=== PATIENT | female | born 1960 | race Caucasian/White ===

== ENCOUNTER 2019-01-26 10:37 | Inpatient (IN) ==
--- NOTE | 2019-01-25 19:33 | Discharge Summary ---
Date of Encounter: 01/30/19 Time of Encounter: 12:30 - Discharge Diagnosis (1) Osteoarthritis of knees, bilateral Priority: Primary Status: Chronic Qualifiers: Osteoarthritis type: unspecified Qualified Code(s): M17.0 - Bilateral primary osteoarthritis of knee (2) Status post total bilateral knee replacement Priority: Primary Status: Acute (3) Diabetes mellitus Priority: Secondary Status: Chronic Qualifiers: Diabetes mellitus type: type 2 Diabetes mellitus manager intermediate insulin use: without manager intermediate use Diabetes mellitus complication status: with unspecified complications Qualified Code(s): E11.8 - Type 2 diabetes mellitus with unspecified complications (4) HLD (hyperlipidemia) Priority: Secondary Status: Chronic Qualifiers: Hyperlipidemia type: unspecified Qualified Code(s): E78.5 - Hyperlipidemia, unspecified (5) Tachycardia Priority: Secondary Status: Acute - Hospital Course Hospital course: Ms. Caballero is a 58 year old female Date of procedure: 01/26/19 Pre-op diagnosis: Bilateral knee arthritis Post-op diagnosis: same Procedure: Bilateral robotic-assisted Total knee replacement Patient developed orthostatic hypotensionw which improved with medication and fluid management. Patient received 1 unit PRBCs on 01/30 for acute anemia. Patient developed recurrent sinus tachycardia which responded to beta michelle use. This was added to patient's medication regimen as temporary medication during the postoperative period until tachycardia resolves. Patient discharged to in rehab with outpatient follow up with ortho arranged. - Time Spent with Patient Total time spent providing and/or coordinating discharge services: - Discharge Medications Prescriptions: New OxyCODONE Immed Rel [Roxicodone 5 MG] 5 mg PO Q6HR PRN 7 Days #28 tablet PRN Reason: Severe Pain Aspirin Enteric Coated [Aspirin EC] 325 mg PO BID 10 Days #20 tablet. Cyclobenzaprine [Flexeril] 5 mg PO TID PRN tablet PRN Reason: Spasms Docusate [Colace] 100 mg PO BID capsule Ferrous Sulfate 325 mg PO BIDWM tablet Lidocaine Patch [Lidoderm 5% patch] 2 each TP DAILY adh..patch Metoprolol [Lopressor] 12.5 mg PO BID 7 Days #14 tablet Ascorbic Acid [Vitamin C] 500 mg PO BIDWM tablet Continue Sitagliptin Phos/Metformin HCl [Janumet 50-500 mg Tablet] 1 each PO DAILY Lisinopril 2.5 mg PO DAILY Cholecalciferol (D-3) [Vitamin D] 1,000 unit PO DAILY Atorvastatin [Lipitor] 10 mg PO HS Insulin Degludec [Tresiba Flextouch U-200] 10 unit SQ HS Home Medications: Cholecalciferol (D-3) [Vitamin D] 1,000 unit PO DAILY 04/18/16 [History] Lisinopril 2.5 mg PO DAILY 04/18/16 [History] Sitagliptin Phos/Metformin HCl [Janumet 50-500 mg Tablet] 1 each PO DAILY 04/18/16 [History] Atorvastatin [Lipitor] 10 mg PO HS 07/05/17 [History] Insulin Degludec [Tresiba Flextouch U-200] 10 unit SQ HS 07/05/17 [History] Aspirin Enteric Coated [Aspirin EC] 325 mg PO BID 10 Days #20 tablet. 01/25/19 [Rx] OxyCODONE Immed Rel [Roxicodone 5 MG] 5 mg PO Q6HR PRN 7 Days #28 tablet 01/25/19 [Rx] Ascorbic Acid [Vitamin C] 500 mg PO BIDWM tablet 01/31/19 [Rx] Cyclobenzaprine [Flexeril] 5 mg PO TID PRN tablet 01/31/19 [Rx] Docusate [Colace] 100 mg PO BID capsule 01/31/19 [Rx] Ferrous Sulfate 325 mg PO BIDWM tablet 01/31/19 [Rx] Lidocaine Patch [Lidoderm 5% patch] 2 each TP DAILY adh..patch 01/31/19 [Rx] Metoprolol [Lopressor] 12.5 mg PO BID 7 Days #14 tablet 01/31/19 [Rx] Allergies/Adverse Reactions: Allergy/AdvReac Type Severity Reaction Status Date / Time latex Allergy See Verified 01/15/19 09:23 Comments naproxen AdvReac Anaphylaxis Verified 01/26/19 11:19 HIVES Date of admission: 01/26/19 Primary care physician: Trinity Mckeon Discharging clinician: Derian Mathew Anticipated date of discharge: 01/30/19 - VTE Documentation of Mechanical Device: Venous foot pump, device - Patient Status Disposition: Transfer Inpatient Rehab Fac Condition: Good Functional capacity at discharge: uses cane/walker Overall status at discharge: patient is progressing back to baseline - Discharge Instructions Follow Up With: Trinity Mckeon DO [Primary Care Provider] - - Diet and Activity Activity: as per physical therapy Diet: advance to your usual diet
--- NOTE | 2019-01-26 09:49 | Anesthesia Evaluation PreOp ---
Date of Encounter: 01/26/19 Time of Encounter: 09:47 - Past History Planned Operation: Marcos Robotic Total knee arthroplasty Cardiac History: HTN, Hyperlipidemia Pulmonary History: Denies Any Significant HX SOFTBALL WINDER History: Denies Any Significant HX Other Medical History: Diabetes Type II Anesthesia History: No Prior Anesthetic Complications, Past Anesthesia (marcos shoulder scope, T&A, laparoscopy,) Alcohol Use: none Drug use: none Medications and Allergies Cholecalciferol (D-3) [Vitamin D] 1,000 unit PO DAILY 04/18/16 [History] Lisinopril 2.5 mg PO DAILY 04/18/16 [History] Sitagliptin Phos/Metformin HCl [Janumet 50-500 mg Tablet] 1 each PO DAILY 04/18/16 [History] Atorvastatin [Lipitor] 10 mg PO HS 07/05/17 [History] Insulin Degludec [Tresiba Flextouch U-200] 10 unit SQ HS 07/05/17 [History] Aspirin Enteric Coated [Aspirin EC] 325 mg PO BID 10 Days #20 tablet. 01/25/19 [Rx] Docusate Sodium [Colace] 100 mg PO BID 5 Days #10 capsule 01/25/19 [Rx] OxyCODONE Immed Rel [Roxicodone 5 MG] 5 mg PO Q6HR PRN 7 Days #28 tablet 01/25/19 [Rx] Allergy/AdvReac Type Severity Reaction Status Date / Time latex Allergy See Verified 01/15/19 09:23 Comments naproxen AdvReac Anaphylaxis Verified 01/26/19 11:19 HIVES - Meds/Allergy Pre-op Review Medications Reviewed: Yes Allergies Reviewed: Yes Beta Blockers on Current Med List: No Anesthesia Results - Labs Laboratory Tests 11/27/17 01/15/19 01/15/19 10:35 09:30 09:30 WBC 8.5 Hgb 14.2 Hct 44.1 Plt Count 282 PT 11.3 INR 1.0 APTT 30.2 Sodium Potassium Chloride Carbon Dioxide BUN Creatinine Glucose 140 H Est Mean Plasma Glucose 01/15/19 01/15/19 09:30 09:30 WBC Hgb Hct Plt Count PT INR APTT Sodium 136 Potassium 4.3 Chloride 106 Carbon Dioxide 29 BUN 16 Creatinine 0.52 L Glucose Est Mean Plasma Glucose 137 - Imaging EKG: report reviewed (SINUS RHYTHM LOW QRS VOLTAGE IN PRECORDIAL LEADS [QRS DEFLECTION < 1.0 mV IN CHEST LEADS] Electronically Signed On 01-15-2019 13:41:46 EST by Inocencio Cuello) Anesthesia Exam O2 Sat Height 1.63 m Height 1.63 m Weight 73.482 kg Weight 73.482 kg O2 Sat by Pulse Oximetry 98 Vital Signs Temp Pulse Resp BP Pulse Ox 98.8 F 81 18 106/60 98 01/26/19 11:13 01/26/19 11:13 01/26/19 11:13 01/26/19 11:13 01/26/19 11:13 Weight: 73kg NPO (# of Hours): >8 - HEENT Pupil (Motor): Pupils equal, EOMI Mallampati: II Teeth: Normal Oral Opening: Greater than 3 - SOFTBALL WINDER LOC: Oriented SOFTBALL WINDER Motor: Normal RUE, Normal LUE, Normal RLE, Normal LLE, Normal Face SOFTBALL WINDER Sensory: Normal: RUE, LUE, RLE, LLE, Face - Cardiac Rhythm: Regular - Pulmonary Breath Sounds: bilateral Clear Respiratory Effort: Symmetrical Anesthesia Assess/Plan ASA Score: 2 Level of consciousness: Cooperative, Oriented Anesthetic Plan: General (plan b), Regional Nerve Block (marcos adductor), MAC, Spinal Regional Nerve Block Plan: Adductor canal (marcos) Monitoring Plan: Standard Monitors Recovery Plan: PACU
[~2019-01-26 10:37] MED LIST: Acetaminophen IV 1,000 MG/100 ML INFUS..BTL IVPB ONE; Pregabalin 75 MG CAPSULE PO ONE; Total Joint Mixture (50 ml) IR ONE
[2019-01-26] MEDS ORDERED: CeFAZolin Syr 2,000MG/20 ML 2,000 MG/20 ML SYRINGE IVPB ONE (10:52)
[2019-01-26] MEDS ORDERED: Ringers Solution, Lactated 1,000 ML IVC SCH ×3 (11:00→16:28)
[2019-01-26] MEDS ORDERED: *HR* Midazolam HCl 2 MG/2 ML VIAL ONE (11:09)
[2019-01-26] MEDS ORDERED: Ondansetron 4 MG/2 ML VIAL ONE (11:09)
[2019-01-26] MEDS ORDERED: Lidocaine -MPF 2% 2 ML VIAL ONE (11:09)
[2019-01-26] MEDS ORDERED: Propofol 500 MG/50 ML INFUS..BTL ONE (11:09)
[2019-01-26] MEDS ORDERED: Dexamethasone 4 MG/ML VIAL ONE (11:09)
[2019-01-26] MEDS ORDERED: *HR* FentaNYL (PF) 100 MCG/2 ML VIAL ONE (11:09)
[2019-01-26] MEDS ORDERED: *HR* OxyCODONE Immed Rel 5 MG TABLET PO PRN (11:31)
[2019-01-26] MEDS ORDERED: *HR* Meperidine 25 MG/ML SYRINGE IVP PRN (11:31)
[2019-01-26] MEDS ORDERED: *HR* HYDROmorphone (PF) 1 MG/ML SYRINGE IVP PRN (11:31)
[2019-01-26] MEDS ORDERED: Ondansetron 4 MG/2 ML VIAL IVP ONE (11:31)
[2019-01-26] MEDS ORDERED: *HR* Promethazine 25 MG/ML VIAL IVP PRN ×2 (11:31→16:28)
--- NOTE | 2019-01-26 11:40 | History & Physical Report ---
Date of Encounter: 01/26/19 Time of Encounter: 11:40 24 Hour HP Update - Instructions Instructions: If the History and Physical is less than 30 days old and was completed prior to A.M. admission and or procedure and has NOT been updated on calendar day of procedure please complete this update prior to performing procedure. - Update Patient reports changes in Medical Condition: No Changes in examination, assessment, or condition: No Changes in Medication: No Preop tests/diagnostics Reviewed: Yes Surgery Remains Indicated: Yes Consent for Planned Operative Procedure(s) Verified: Yes - Pre-Operative Checklist Preoperative Checklist Indicated: No Prophylactic Antibiotic Ordered: Yes Is VTE Prophylaxis Indicated?: Yes
[2019-01-26] MEDS ORDERED: ROPIVACAINE/PF/NS SYRINGE INTRAART ONE (12:01)
[2019-01-26] MEDS ORDERED: Lidocaine -MPF 1% 5 ML AMPUL ONE ×2 (12:01→12:23)
[2019-01-26] MEDS ORDERED: Ethanol\\Acetic Acid\\Na Ace\\Ben 1,000 ML IRRIG.SOLN IR ONE (12:17)
--- NOTE | 2019-01-26 12:46 | Anesthesia Procedures ---
Date of Encounter: 01/26/19 Time of Encounter: 12:44 Procedures: Anesthesia - Nerve Block Procedure Date: 01/26/19 Time: 12:44 Allergies/Adv Reactions: latex Allergy (Verified 01/15/19 09:23) See Comments naproxen Adverse Reaction (Verified 01/26/19 11:19) Anaphylaxis HIVES Pre-op Diagnosis: osteoarthritis Surgical Procedure: bilateral total knee replacment Checklist: Correct Patient Identifier, Correct procedure, History checked Correct side: Left Blood Thinner: No Monitor Applied: BP, Pulse Oximetry Supplemental Oxygen via Nasal Cannula (L/min): 2 Sedation: Versed (mg): 2 Sedation: Fentanyl (mcg): 100 Indication: Post Op Analgesia Pre-op Neuro Deficits: No Block Type: Other (adductor) Catheter placed: No Sterile Technique: Yes Ultrasound used: Yes Anatomy identified: Yes Visual spread of Local: Yes Neuro Stimulation: No Blood on Needle Aspiration: No Smooth Injection of Local: Yes Pain with Injection of Local: No Prep: Chlorhexadine Needle: 22 x 50 mm Stimuplex Local: Ropivacaine (0.25%, 15cc each side) Volume (cc): 30 Number of Attempts: 1 Complications: None/effective block
--- NOTE | 2019-01-26 12:50 | Anesthesia Procedures ---
Date of Encounter: 01/26/19 Time of Encounter: 12:47 Procedures: Anesthesia - Epidural/Spinal Patient ID/Chart reviewed: Yes Patient examined: Yes Consent Obtained: Yes Supplemental Oxygen: Nasal Cannula (2l) Site Prep: Aseptic Technique Patient position: upright Local Anesthetic: Lidocaine 1% Amount of Local Anesthetic used: 3 Spinal Needle Gauge: 25 ([employer] Procedure: Strict asepsis, one failed attempt at L4-5, one successful attempt at L3-4. Clear CSF, no parasthesias, no heme, positive swirl, 2.5cc 0.5% bupivicaine injected incrementally.
[2019-01-26] MEDS ORDERED: Tranexamic Acid 1,000 MG/10 ML VIAL ONE (12:57)
[2019-01-26] MEDS ORDERED: Total Joint Mixture (50 ml) IR ONE ×2 (13:00)
[2019-01-26] MEDS ORDERED: *HR* PHENYLEPHRINE 1,000 MCG/10 ML SYRINGE IVP ONE (13:16)
--- NOTE | 2019-01-26 14:18 | Orthopedic Operative Note ---
Date of procedure: 01/26/19 Pre-op diagnosis: Bilateral knee arthritis Post-op diagnosis: same Procedure: Procedure: Bilateral robotic-assisted Total knee replacement Estimated blood loss: 300 cc Hardware: Metal and polyethylene replacement press-fit. [place] Femur: 4 Tibia: 4 PS insert: 11 left, 9 right Patella: 36 Exam Under anesthesia: Left knee 6 degree flexion contracture 7 degree varus right knee 12 degree flexion contracture 12 degree varus as calculated by the robot full flexion and no instability Procedural Notes: Patient with multiple loose bodies large and right suprapatellar pouch, both knees grade 4 arthritic changes medial compartment and patellofemoral joint. Operative procedure: The patient was brought to the operating room and placed on the operating room table. After general anesthesia was administered the operative knee was examin ed. Findings were noted in the exam under anesthesia. The operative extremity was prepped and draped in sterile surgical fashion. The patient received IV antibiotics prior to skin incision. The surgery that is dictated this for both knees differences will be highlighted surgery began with the left knee followed by the right knee. A standard midline incision was made centered over the patella. The incision was made through the skin and subcutaneous tissue. A medial parapatellar tendon approach was performed. Care was taken to preserve tissue along the medial aspect of the patella. And to protect the patella tendon. The deep MCL was released off the medial tibia. The infra patella fat pad was excised. The patella was everted and cut was made at the level of the insertion of the quadriceps and patella tendon. The patella was sized the guide was seated and the lug holes are drilled. Knee was brought into flexion. Patient noted to have grade 4 arthritic changes both knees medial compartment and patellofemoral joint. Steinmann pins were placed in the tibia and the femur for the tibial and femoral arrays respectively. Checkpoints were also placed in the tibia and the femur for calculation purposes. The knee including the femur and the tibial registered. Osteophytes, ACL and PCL were excised at this point. Extension and flexion were assessed with a valgus stress components were adjusted on the computer to balance the knee. Femoral cuts were made first with robotic assistance, these included the anterior cut posterior cuts chamfer cuts. Tibial cut was then performed with robotic assistance as well. Bone fragments were removed, as well as the medial and lateral meniscus. The size 4 femoral guide was seated box cut was made lug holes are drilled. The size 4 tibial tray was seated and prepared with the fin cutter. Trial reduction with the 11 left, 9 right PS Lisa revealed extension of 0 degree and 4 degree varus left knee, 9 degree varus right knee full flexion. No varus valgus instability. Trial reduction revealed excellent patella tracking. All trial components were removed all bony surfaces were irrigated. The Tibia was seated followed by the femur, The selected Lisa size was seated and secured patella. Patient had similar findings for motion and stability. The knee was closed by the PA. The knee was then irrigated out with 2 L of pulse irrigation. The extensor mechanism was closed with #2 FiberWire suture and #2 PDS suture. The subcutaneous tissue was then irrigated and closed deep with #1 PDS suture superficially with 0 PDS suture and skin was closed with zip tie The patient was then placed in a sterile dressing and a postoperative brace extubated and transferred to recovery room in stable condition. Anesthesia: spinal Surgeon: Derian Mathwe Was there an interior design assistant present: Yes Hat Sizer: Kimberlyn Chowdhury Estimated blood loss (cc): 300 Condition: stable Disposition: PACU
[2019-01-26 15:26] LABS: Hematocrit 38.3 % (35.3-44.9); Hemoglobin 12.4 g/dL (11.5-15.4)
--- NOTE | 2019-01-26 16:17 | Anesthesia Evaluation Post Op ---
Date of Encounter: 01/26/19 Time of Encounter: 16:20 - Vital Signs Vital Signs: Vital Signs/O2 Sat/Glucose, Most Current Temp Pulse Resp BP Pulse Ox 01/26/19 15:50 98.8 F 62 16 107/66 100 01/26/19 15:40 67 16 117/69 99 01/26/19 15:30 67 16 110/63 99 01/26/19 15:20 98.0 F 65 16 111/62 100 01/26/19 15:10 66 16 106/55 96 01/26/19 15:00 67 16 106/60 96 01/26/19 14:50 97.4 F L 68 16 98/63 99 01/26/19 12:40 78 113/62 99 - Lungs Lungs: Clear Ascult./Percussion - Airway Airway: Non-obstructed - Cardiovascular Regular Rate - Mental Status Mental Status: Alert & Oriented, Answers Appropriately - Pain Pain Scale: 0 - Nausea Vomiting Nausea Vomiting: Not Present - Hydration Hydration: Ice chips - Discharge PostOp Status: Transfer Patient to floor
[2019-01-26] MEDS ORDERED: Dextrose Gel 15 GM/37.5 ML TUBE PO PRN ×2 (16:28)
[2019-01-26] MEDS ORDERED: *HR* Dextrose 50 % in Water (Syg) 50 ML SYRINGE IVP PRN (16:28)
[2019-01-26] MEDS ORDERED: Dextrose 4 GM Chewable Tablets PO PRN ×2 (16:28)
[2019-01-26] MEDS ORDERED: MOM Conc 10 ML UD.LIQ PO PRN (16:28)
[2019-01-26] MEDS ORDERED: *HR* OxyCODONE/APAP 5/325 TABLET PO PRN (16:28)
[2019-01-26] MEDS ORDERED: Sennosides 8.6 MG TABLET PO PRN (16:28)
[2019-01-26] MEDS ORDERED: Ondansetron 4 MG/2 ML VIAL IVP PRN (16:28)
[2019-01-26] MEDS ORDERED: Temazepam 15 MG CAPSULE PO PRN (16:28)
[2019-01-26] MEDS ORDERED: D5% in Water 1,000 ML IVC PRN (16:28)
[2019-01-26] MEDS: Insulin LISPRO 300 UNITS/3 ML VIAL SQ SCH ×2 (17:34→20:57)
[2019-01-26] MEDS: Ascorbic Acid 500 MG TABLET PO SCH (18:57)
[2019-01-26] MEDS: traMADol 50 MG TABLET PO PRN (18:57)
[2019-01-26] MEDS: *HR* Enoxaparin 30 MG/0.3 ML SYRINGE SQ SCH (19:02)
[2019-01-26] MEDS: *HR* OxyCODONE Immed Rel 5 MG TABLET PO PRN (20:45)
[2019-01-26] MEDS: INSULIN DEGLUDEC 10 UNIT SQ SCH (20:57)
[2019-01-27] MEDS: *HR* OxyCODONE Immed Rel 5 MG TABLET PO PRN ×4 (01:37→19:37)
[2019-01-27] MEDS: *HR* Enoxaparin 30 MG/0.3 ML SYRINGE SQ SCH ×2 (05:54→17:20)
[2019-01-27] MEDS: traMADol 50 MG TABLET PO PRN ×2 (05:59→12:36)
--- NOTE | 2019-01-27 06:24 | Orthopedics Progress Note ---
Date of Encounter: 01/27/19 Time of Encounter: 06:23 Subjective Interval history: Patient was seen this morning doing well without complaints. Afebrile vital signs stable. Operative extremity: Neurovascularly intact Dressing clean dry and intact Calves nontender Assessment and plan: Continue with postoperative care Postop hematocrit 38 plan for discharge today Objective Vital signs: Vital Signs Temp Pulse Resp BP Pulse Ox 01/27/19 03:01 98.3 F 69 14 100/59 99 01/26/19 23:14 98.1 F 74 16 113/63 98 01/26/19 20:58 99 01/26/19 19:16 97.8 F 74 18 129/62 99 01/26/19 16:46 98 F 69 16 109/71 99 01/26/19 15:50 98.8 F 62 16 107/66 100 01/26/19 15:40 67 16 117/69 99 01/26/19 15:30 67 16 110/63 99 01/26/19 15:20 98.0 F 65 16 111/62 100 01/26/19 15:10 66 16 106/55 96 01/26/19 15:00 67 16 106/60 96 01/26/19 14:50 97.4 F L 68 16 98/63 99 01/26/19 12:40 78 113/62 99 01/26/19 11:53 80 16 106/64 99 01/26/19 11:15 132/66 01/26/19 11:13 98.8 F 81 18 106/60 98 01/26/19 10:46 106/64 Intake and Output 01/26/19 01/26/19 01/27/19 15:59 23:59 07:59 Intake Total 900 / 900 600 / 600 Output Total 300 / 300 1350 / 1350 0 / 0 Balance -300 / -300 -450 / -450 600 / 600 Intake: IV Fluids 100 / 100 Ancef 2,000 MG In 0.9 % Sodium 100 / 100 Chloride 100 ML @ 200 mls/hr IVPB Q[facility]H [facility] Rx#:[id number] Oral 800 / 800 600 / 600 Output: Urine 0 / 0 1350 / 1350 0 / 0 Estimated Blood Loss 300 / 300 Other: Weight 73.482 kg 77.04 kg Blood Glucose* 99 136 Patient Weight 01/27/19 23:59 Weight 77.04 kg - Labs CBC & BMP: 01/26/19 15:00 Labs: Abnormal lab results POC Glucose 136 mg/dL (70-99) H 01/26/19 23:03 Consult Discharge Plan - Plan Referrals: Trinity Mckeon DO [Primary Care Provider] - Prescriptions: Aspirin Enteric Coated [Aspirin EC] 325 mg PO BID 10 Days #20 tablet. Docusate Sodium [Colace] 100 mg PO BID 5 Days #10 capsule OxyCODONE Immed Rel [Roxicodone 5 MG] 5 mg PO Q6HR PRN 7 Days #28 tablet PRN Reason: Severe Pain
[2019-01-27 06:32] LABS: Hematocrit 35.2 % (35.3-44.9); Hemoglobin 11.5 g/dL (11.5-15.4)
[2019-01-27 06:48] LABS: BUN/Creatinine Ratio 23 (6-26); Blood Urea Nitrogen 13 mg/dL (6-20); Carbon Dioxide 28 mEq/L (23-29); Chloride 101 mEq/L (98-107); Glucose 124 mg/dL (70-105); Osmolality,Calculated 286 (280-300); Sodium 137 mEq/L (136-145); eGFR For Non-African Americans > 60 (> 60)
[2019-01-27] MEDS: Insulin LISPRO 300 UNITS/3 ML VIAL SQ SCH ×4 (08:23→20:30)
[2019-01-27] MEDS ORDERED: SITAGLIPTIN PHOS PO SCH (09:00)
[2019-01-27] MEDS ORDERED: METFORMIN HCL PO SCH (09:00)
[2019-01-27] MEDS ORDERED: [UNRECOGNIZED DRUG - OTHER] PO SCH (09:00)
[2019-01-27] MEDS: Multivit/Ca/Min/Fe/FA 1 TAB TABLET PO SCH (09:18)
[2019-01-27] MEDS: Ascorbic Acid 500 MG TABLET PO SCH ×2 (09:18→17:20)
[2019-01-27] MEDS: Cholecalciferol (D-3) 1,000 UNIT TABLET PO SCH (09:19)
[2019-01-27] MEDS: *HR* SitaGLIPtin 25 MG TABLET PO SCH (12:36)
[2019-01-27] MEDS: *HR* Metformin 500 MG TABLET PO SCH (12:37)
[2019-01-27] MEDS: Acetaminophen IV 1,000 MG/100 ML INFUS..BTL IVPB PRN (15:19)
--- NOTE | 2019-01-27 16:29 | Event Note ---
Date of Encounter: 01/27/19 Time of Encounter: 12:15 PCR - POD#1 s/p B/L TKR 01/26/19 Patient seen at bedside A&O x 3 Afebrile, vital signs stable now. She did have orthostatic hypotensive episode this morning which seems to have resolved now. She was given bolus of fluids at the time. She was having lightheadedness and nausea related to this episode but did not pass out. Dressings have minimal drainage. no calf tenderness to palpation. good dorsiflexion of foot, sensation intact distally. Labs reviewed. H/H - 11.5/35.2 stable, asymptomatic. Cr 0.57 - improved compared to preop Pain control: inadequate LEFT worse than right. described muscle spasms and sharp pain directly behind knee. minimal pain to right leg. will add muscle relaxer and lidoderm patch. If still no improvement will consider doppler although there is no calf pain on exam bilaterally. PT on hold this morning due to hypotension. If improved will try therapy this afternoon All questions and concerns addressed. Educated on use of incentive spirometer. Encouraged ambulation and proper hydration. Patient educated on post-operative restrictions and post-operative care. Assessment and plan: Continue with postoperative care Discharge plan: Home with outpatient therapy, will stay tonight for pain control, possible DC tomorrow
[2019-01-27] MEDS: Gabapentin 300 MG CAPSULE PO PRN (17:20)
[2019-01-27] MEDS: INSULIN DEGLUDEC 10 UNIT SQ SCH (20:31)
[2019-01-28] MEDS ORDERED: Isovue-370 500 ML BOTTLE IVP ONE (00:24)
[2019-01-28 01:06] LABS: Hematocrit 31.7 % (35.3-44.9); Hemoglobin 10.4 g/dL (11.5-15.4)
--- NOTE | 2019-01-28 01:15 | Internal Medicine Consult Note ---
Date of Encounter: 01/28/19 Time of Encounter: 00:10 - Assessment and Plan (1) Pleuritic chest pain Current Visit: Yes Status: Acute Assessment and plan: 1. High index of suspicion for PE given bilateral TKR. 2. STAT CTA chest ordered -- will order heparin drip if + for PE. 3. Will also cycle troponins, EKG's, and order ECHO. (2) Tachycardia Current Visit: Yes Status: Acute Assessment and plan: 1. Likely due to pleuritic CP/possible PE. 2. Monitor on telemetry. 3. Work-up and treatment as above. - Time Spent With Patient Total time spent is greater than 50% in coordination of care (as documented) at patient's floor/unit and/or counseling patient: Internal Medicine - CN: HPI - Data of Consult Consult date: 01/28/19 Requesting Physician: Derian Mathew MD - Consult Narrative Reason for consult: chest pain, tachycardia History of present illness: Ms. Caballero is a 58 year old female who is 2 days postop from bilateral knee re placement. I was asked to see patient by nursing staff and Dr. Mathew on an emergent basis for acute onset of chest pain and tachycardia. Upon my assessment of the patient, she is resting in bed comfortably. However, she is tachycardic with heart rate in the 120s to 130s. EKG shows sinus tachycardia. She complains of pleuritic-type chest pain, especially with position and deep inspiration. She has had no fevers, cough, congestion, or dyspnea otherwise. Patient has been on adequate DVT prophylaxis. Upon further history, patient states her mother has had prior DVT and questionable PE. She herself has not had any prior thromboembolism. Despite being on appropriate DVT prophylaxis, I still have a heightened suspicion for PE. I therefore ordered a STAT CT angiogram of the chest. I called Dr. Mathew and informed of my concern. If her CTA is positive for PE, we will initiate heparin infusion. He agrees with my plan of care. Of note, patient did have Doppler study of her left lower extremity today which was negative for DVT. Right lower extremity Dopplers were not performed. Past Med Surg Social Fam HX - Past Medical History Attestation: Yes The following information was validated with the patient. Source: patient, old records reviewed Medical history: diabetes Additional medical history: acromioclavicular joint arthritis. rotator cuff tear. Latex allergy status hives Psychiatric history: no psych history - Past Surgical History Surgical History: orthopedic, other Additional surgical history: bilateral shoulder repair. laparoscopy. tonsils and adenoids - Social History Smoking Status: Former smoker Smokeless Tobacco Status: No Alcohol use: none Drug use: none Current living situation: Home Activity Level: Independent ambulation - Family History Mother Living Status: Hx Family Neurologic Disorders: Yes (TIA) - Constitutional Constitutional: no chills, no fever(s) - EENT Eyes: no change in vision Ears: no ear pain Nose, mouth and throat: no nasal congestion, no sinus pressure, no sore throat - Cardiovascular Cardiovascular ROS IM: chest pain, palpitations, no dyspnea, no lightheadedness - Respiratory Respiratory: no cough, no chest congestion, no excessive phlegm production, no change in phlegm color, no pain with cough - Gastrointestinal Gastrointestinal: no diarrhea, no vomiting - Musculoskeletal Musculoskeletal ROS IM: no muscle cramps, no myalgias - Neurological Neurological ROS: no dizziness, no focal weakness, no frequent falls, no h eadache(s) - Endocrine Endocrine IM: no polyphagia, no polyuria - Allergic/Immunologic Allergic/Immunologic: no wheezing, no GI upset with certain foods Internal Medicine - CN: Meds Cholecalciferol (D-3) [Vitamin D] 1,000 unit PO DAILY 04/18/16 [History] Lisinopril 2.5 mg PO DAILY 04/18/16 [History] Sitagliptin Phos/Metformin HCl [Janumet 50-500 mg Tablet] 1 each PO DAILY 04/18 [History] Atorvastatin [Lipitor] 10 mg PO HS 07/05/17 [History] Insulin Degludec [Tresiba Flextouch U-200] 10 unit SQ HS 07/05/17 [History] Aspirin Enteric Coated [Aspirin EC] 325 mg PO BID 10 Days #20 tablet. 01/25/19 [Rx] Docusate Sodium [Colace] 100 mg PO BID 5 Days #10 capsule 01/25/19 [Rx] OxyCODONE Immed Rel [Roxicodone 5 MG] 5 mg PO Q6HR PRN 7 Days #28 tablet 01/25/19 [Rx] Allergy/AdvReac Type Severity Reaction Status Date / Time latex Allergy See Verified 01/15/19 09:23 Comments naproxen AdvReac Anaphylaxis Verified 01/26/19 11:19 [facility]EN[facility] Hospitalist - CN: Exam - Constitutional Vitals: Temp Pulse Resp BP Pulse Ox 98.6 F 123 17 113/57 98 01/27/19 23:22 01/27/19 23:22 01/27/19 23:22 01/27/19 23:22 01/27/19 23:22 General appearance IM: Present: cooperative, mild distress, A&O X 3, pleasant, answers questions appropriately Exam: see below - Head Head exam: Present: atraumatic, normal inspection - Eye Eye exam: Present: EOMI, PERRL. Absent: scleral icterus - ENT ENT exam: Present: mucous membranes dry, normal exam, normal oropharynx - Neck Neck exam general surgery: Present: full ROM, supple, trachea midline. Absent: tenderness, nuchal rigidity, thyromegaly - Respiratory Respiratory exam: Present: CTAB, tachypnea. Absent: accessory muscle use, chest wall tenderness, rales, rhonchi, wheezes Additional comments: + splinting at times with deep inspiration - Cardiovascular Cardiovascular exam IM: Present: +S1, +S2, tachycardia. Absent: diastolic murmur, systolic murmur - GI/Abdominal GI/Abdominal exam IM: Present: normal bowel sounds, soft. Absent: hepatomegaly, mass, splenomegaly, tenderness - Extremities Exam Extremities exam IM: Present: warm, radial pulses palpable and symmetrical. Absent: pedal edema - Back Exam Back exam: Absent: CVA tenderness (L), CVA tenderness (R) - Neurological Exam Neurological exam: Present: alert, CN II-XII intact, oriented X3, no focal deficits - Psychiatric Psychiatric exam: Present: normal affect, normal mood - Skin Skin exam IM: Present: dry, intact, warm Internal Medicine - CN: Reslt - Labs CBC & Chem 7: 01/28/19 00:42 01/27/19 06:15 Labs: Short CBC 01/27/19 01/28/19 Range/Units 06:15 00:42 Hgb 11.5 10.4 L (11.5-15.4) g/dL Hct 35.2 L 31.7 L (35.3-44.9) % BMP 01/27/19 06:15 Sodium 137 Potassium 4.0 Chloride 101 Carbon Dioxide 28 BUN 13 Creatinine 0.57 L Glucose 124 H Calcium 9.0 Consult Discharge Plan - Plan Referrals: Trinity Mckeon DO [Primary Care Provider] - Prescriptions: OxyCODONE Immed Rel [Roxicodone 5 MG] 5 mg PO Q6HR PRN 7 Days #28 tablet PRN Reason: Severe Pain Aspirin Enteric Coated [Aspirin EC] 325 mg PO BID 10 Days #20 tablet. Docusate Sodium [Colace] 100 mg PO BID 5 Days #10 capsule
[2019-01-28 01:25] LABS: BUN/Creatinine Ratio 19 (6-26); Blood Urea Nitrogen 11 mg/dL (6-20); Calcium 8.9 mg/dL (8.6-10.3); Carbon Dioxide 27 mEq/L (23-29); Chloride 101 mEq/L (98-107); Glucose 167 mg/dL (70-105); Osmolality,Calculated 285 (280-300); Potassium 3.9 mEq/L (3.5-5.1); Sodium 136 mEq/L (136-145); eGFR For Non-African Americans > 60 (> 60)
[2019-01-28] MEDS: *HR* OxyCODONE Immed Rel 5 MG TABLET PO PRN ×3 (01:36→17:20)
[2019-01-28] MEDS: *HR* Enoxaparin 30 MG/0.3 ML SYRINGE SQ SCH ×2 (05:33→17:19)
[2019-01-28] MEDS: Acetaminophen IV 1,000 MG/100 ML INFUS..BTL IVPB PRN ×3 (06:37→20:14)
--- NOTE | 2019-01-28 07:56 | Orthopedics Progress Note ---
Date of Encounter: 01/28/19 Time of Encounter: 07:55 Subjective Interval history: Patient was seen this morning doing well chest pain overnight, troponins negative, CT of chest negative for PE workup continuing Afebrile vital signs stable. Operative extremity: Neurovascularly intact Dressing clean dry and intact Calves nontender Assessment and plan: Continue with postoperative care Postop hematocrit 31 plan for discharge now depends on workup outcome Objective Vital signs: Vital Signs Temp Pulse Resp BP Pulse Ox 01/28/19 06:27 100.2 F H 121 18 118/62 94 01/28/19 04:33 99.8 F H 121 17 123/69 98 01/27/19 23:22 98.6 F 123 17 113/57 98 01/27/19 19:14 98.8 F 114 16 122/71 100 01/27/19 15:02 98.9 F 88 24 134/76 100 01/27/19 12:59 111/58 01/27/19 11:39 90/51 01/27/19 11:26 97 F L 93 16 138/75 97 01/27/19 11:22 97.8 F 90 16 115/69 99 01/27/19 08:27 122/68 Intake and Output 01/27/19 01/27/19 01/28/19 15:59 23:59 07:59 Intake Total 300 / 300 1100 / 1100 Output Total 900 / 900 Balance -600 / -600 1100 / 1100 Intake: IV Fluids 100 / 100 1000 / 1000 Lactated Ringers 1,000 ML @ 75 1000 / 1000 mls/hr IVC .[id number] SINDHU Rx#: [id number] Ofirmev 1,000 mg/100 ml 1,000 100 / 100 mg In 100 ml @ 400 mls/hr IVPB Q6HR PRN Rx#:[id number] Oral 200 / 200 100 / 100 Output: Urine 900 / 900 Other: Meal Lunch Dinner Percent of Meal Consumed 50% 50% # Voids 1 1 Weight 77.1 kg Blood Glucose* 127 171 153 Patient Weight 01/28/19 23:59 Weight 77.1 kg - Labs CBC & BMP: 01/28/19 00:42 01/28/19 00:42 Labs: Abnormal lab results Hgb 10.4 g/dL (11.5-15.4) L 01/28/19 00:42 Hct 31.7 % (35.3-44.9) L 01/28/19 00:42 Creatinine 0.59 mg/dL (0.60-1.20) L 01/28/19 00:42 Glucose 167 mg/dL (70-105) H 01/28/19 00:42 POC Glucose 135 mg/dL (70-99) H 01/28/19 00:34 Consult Discharge Plan - Plan Referrals: Trinity Mckeon DO [Primary Care Provider] - Prescriptions: Aspirin Enteric Coated [Aspirin EC] 325 mg PO BID 10 Days #20 tablet. Docusate Sodium [Colace] 100 mg PO BID 5 Days #10 capsule OxyCODONE Immed Rel [Roxicodone 5 MG] 5 mg PO Q6HR PRN 7 Days #28 tablet PRN Reason: Severe Pain
[2019-01-28] MEDS: *HR* SitaGLIPtin 25 MG TABLET PO SCH (08:02)
[2019-01-28] MEDS: Cholecalciferol (D-3) 1,000 UNIT TABLET PO SCH (08:02)
[2019-01-28] MEDS: Ascorbic Acid 500 MG TABLET PO SCH ×2 (08:02→17:20)
[2019-01-28] MEDS: Multivit/Ca/Min/Fe/FA 1 TAB TABLET PO SCH (08:03)
[2019-01-28] MEDS: Insulin LISPRO 300 UNITS/3 ML VIAL SQ SCH ×4 (08:04→21:32)
[2019-01-28] MEDS ORDERED: 0.9 % Sodium Chloride 1,000 ML IVC SCH (11:15)
--- NOTE | 2019-01-28 12:03 | Event Note ---
Date of Encounter: 01/28/19 Time of Encounter: 09:30 PCR - POD#2 s/p B/L TKR 01/26/19 Patient seen at bedside A&O x 3 Afebrile, vital signs stable now when supine - continues to drop with ambulation and symptomatic orthostatic hypotension. Bolus given 01/27. Dressings have minimal drainage. no calf tenderness to palpation. good dorsiflexion of foot, sensation intact distally. Labs reviewed. Pain control: improved with muscle relaxer and lidoderm patch. PT on hold this morning due to hypotension. If improved will try therapy this afternoon All questions and concerns addressed. Educated on use of incentive spirometer. Encouraged ambulation and proper hydration. Patient educated on post-operative restrictions and post-operative care. Assessment and plan: Continue with postoperative care Discharge plan: hospitalist on board CTA negative - awaiting further recommendations.
[2019-01-28 12:08] LABS: Adenovirus Not Detected (Not Detect); Bordetella Pertussis Not Detected (Not Detect); Chlamydophila pneumoniae Not Detected (Not Detect); Coronavirus 229E Not Detected (Not Detect); Coronavirus HKU1 Not Detected (Not Detect); Coronavirus NL63 Not Detected (Not Detect); Coronavirus OC43 Not Detected (Not Detect); Human Metapneumovirus Not Detected (Not Detect); Human Rhinovirus/Enterovirus Not Detected (Not Detect); Influenza A Subtype 2009 H1 Not Detected (Not Detect); Influenza A Untypeable Not Detected (Not Detect); Influenza B Not Detected (Not Detect); Mycoplasma pneumoniae Not Detected (Not Detect); Parainfluenza Virus 1 Not Detected (Not Detect); Parainfluenza Virus 2 Not Detected (Not Detect); Parainfluenza Virus 3 Not Detected (Not Detect); Parainfluenza Virus 4 Not Detected (Not Detect); Respiratory Syncytial Virus Not Detected (Not Detect)
--- NOTE | 2019-01-28 14:07 | Event Note ---
Date of Encounter: 01/28/19 Time of Encounter: 11:15 Consult note reviewed. Patient, who is status post bilateral total knee replacement POD#3, was noted to be tachycardic overnight hence hospitalist was consulted. Also had low grade temp of 100.2 as well as orthostatic hypotension this morning. CTA -ve for PE or pneumonia. No dysuria, urinary frequency, or flank pain. Suspect post-op atelectasis +/- inadequate pain control. HR spontaneously improving. Encouraged incentive spirometry and early ambulation. Pain mx per primary. Will continue IVF for today for orthostatic hypotension.
[2019-01-28] MEDS: INSULIN DEGLUDEC 10 UNIT SQ SCH (21:33)
[2019-01-29] MEDS: *HR* OxyCODONE Immed Rel 5 MG TABLET PO PRN ×5 (00:24→21:09)
[2019-01-29] MEDS ORDERED: Ketorolac 30 MG/ML VIAL IVP PRN (02:13)
[2019-01-29] MEDS: *HR* Enoxaparin 30 MG/0.3 ML SYRINGE SQ SCH ×2 (06:11→17:12)
[2019-01-29] MEDS: Acetaminophen IV 1,000 MG/100 ML INFUS..BTL IVPB PRN ×3 (07:52→21:10)
--- NOTE | 2019-01-29 07:57 | Electrocardiograph Report ---
[address] [address] Test Date: 2019-01-28 Pat Name: Monica Caballero Department: 114 Room: [facility] Gender: F Career Development Associate: MK : 1960 Requested By: Derian Mathew Order Number: [id number] Reading MD: Dima Lorenzo Measurements Intervals [place] Rate: 122 P: 61 [place]: 150 QRS: 35 QRSD: 85 T: -10 QT: 337 QTc: 410 Interpretive Statements SINUS TACHYCARDIA NONSPECIFIC ST & T-WAVE ABNORMALITY ABNORMAL RHYTHM ECG Electronically Signed On 01-29-2019 7:56:34 EDT by Dima Lorenzo
[2019-01-29] MEDS: Cholecalciferol (D-3) 1,000 UNIT TABLET PO SCH (08:18)
[2019-01-29] MEDS: Multivit/Ca/Min/Fe/FA 1 TAB TABLET PO SCH (08:18)
[2019-01-29] MEDS: *HR* SitaGLIPtin 25 MG TABLET PO SCH (08:18)
[2019-01-29] MEDS: Ascorbic Acid 500 MG TABLET PO SCH ×2 (08:19→17:12)
[2019-01-29] MEDS: Insulin LISPRO 300 UNITS/3 ML VIAL SQ SCH ×3 (08:20→17:18)
--- NOTE | 2019-01-29 08:42 | Orthopedics Progress Note ---
Date of Encounter: 01/29/19 Time of Encounter: 08:41 - Assessment and Plan (1) Osteoarthritis of knees, bilateral Current Visit: Yes Status: Chronic Qualifiers: Osteoarthritis type: unspecified Qualified Code(s): M17.0 - Bilateral primary osteoarthritis of knee (2) Status post total bilateral knee replacement Current Visit: Yes Status: Acute (3) Diabetes mellitus Current Visit: No Status: Chronic Qualifiers: Diabetes mellitus type: type 2 Diabetes mellitus regional intermodal truck driver insulin use: without regional intermodal truck driver use Diabetes mellitus complication status: with unspecified complications Qualified Code(s): E11.8 - Type 2 diabetes mellitus with unspecified complications (4) HLD (hyperlipidemia) Current Visit: No Status: Chronic Qualifiers: Hyperlipidemia type: unspecified Qualified Code(s): E78.5 - Hyperlipidemia, unspecified Subjective Principal diagnosis: s/p b/l TKR Interval history: POD#3 s/p B/L TKR 01/26/19 Patient seen at bedside A&O x 3 Afebrile, vital signs stable now - symptomatic improved - able to participate with therapy now. Bolus given 3. Dressings have minimal drainage. no calf tenderness to palpation. good dorsiflexion of foot, sensation intact distally. Labs reviewed. Pain control: improved with muscle relaxer and lidoderm patch. Participating with therapy All questions and concerns addressed. Educated on use of incentive spirometer. Encouraged ambulation and proper hydration. Patient educated on post-operative restrictions and post-operative care. Assessment and plan: Continue with postoperative care Discharge plan: hospitalist on board CTA negative - will have dopplers to rule out DVT. S/w Dr. Gomez - will await his recommendations following doppler results. Awaiting SW discussion with patient as therapy continues to recommend inpt rehab. Dr. Mathew made aware of patient's status Objective Vital signs: Vital Signs Temp Pulse Resp BP Pulse Ox 01/29/19 08:12 99.6 F 111 16 126/61 96 01/29/19 03:18 98.8 F 116 16 124/62 96 01/28/19 22:44 98.6 F 109 17 122/70 98 01/28/19 19:52 100.4 F H 119 17 114/58 99 01/28/19 15:17 99.2 F 112 20 126/68 95 01/28/19 11:07 98.5 F 105 18 122/68 95 Intake and Output 01/28/19 01/29/19 01/29/19 23:59 07:59 15:59 Intake Total 200 / 200 Output Total 700 / 700 600 / 600 Balance -500 / -500 -600 / -600 Intake: IV Fluids 100 / 100 Ofirmev 1,000 mg/100 ml 1,000 100 / 100 mg In 100 ml @ 400 mls/hr IVPB Q6HR PRN Rx#:[id number] Oral 100 / 100 Output: Urine 700 / 700 600 / 600 Other: Meal Dinner Percent of Meal Consumed 25% # Voids 1 Weight 77.4 kg Blood Glucose* 153 169 Patient Weight 01/29/19 23:59 Weight 77.4 kg - Labs CBC & BMP: 01/28/19 00:42 01/28/19 00:42 Labs: Abnormal lab results Hgb 10.4 g/dL (11.5-15.4) L 01/28/19 00:42 Hct 31.7 % (35.3-44.9) L 01/28/19 00:42 Creatinine 0.59 mg/dL (0.60-1.20) L 01/28/19 00:42 Glucose 167 mg/dL (70-105) H 01/28/19 00:42 POC Glucose 153 mg/dL (70-99) H 01/28/19 19:37 Consult Discharge Plan - Plan Referrals: Trinity Mckeon DO [Primary Care Provider] -
--- NOTE | 2019-01-29 14:12 | Internal Med Progress Note ---
Hospitalist Progress Note - Encounter Date of Encounter: 01/29/19 Time of Encounter: 11:30 - Subjective Interval History: Pt reports improvement in her knee pain but does note that L LE is slightly more swollen and tense compared to the right. Had temp of 100.4 at 8pm yesterday but continues to deny any focal complaints including chest pain, shortness of breath, productive cough, abdominal pain, diarrhea, or dysuria. Respiratory viral panel was also negative. Repeat orthostatics was unremarkable - Exam Vitals: Temp Pulse Resp BP Pulse Ox 98.1 F 111 15 126/63 100 01/29/19 12:16 01/29/19 12:16 01/29/19 12:16 01/29/19 12:16 01/29/19 12:16 Exam: General: Alert and oriented, not in acute distress. Cardiovascular:Normal S1 & S2, No JVD. Pulse regular. Lungs: clear to auscultation, no wheezes/rales Abdomen:Soft, non-tender, no rigidity. Extremities: B/L knee dressing c/d/i. L LE slightly more swollen, warm, and tense compared to the right Skin:Normal color, no rash, no lesions. - Assessment and Plan (1) Tachycardia Status: Acute Assessment and Plan: sinus tachycardia due to ?volume depletion post-op. Pt had orthostatic vitals +ve which had since been resolved with IVF yesterday CTA did not show any PE or PNA. No other infectious symptoms reported. Surgical sites appear unremarkable. ACS ruled out. will get LE doppler discussed with the primary team (2) Status post total bilateral knee replacement Status: Acute Assessment and Plan: mx per primary optimize pain control which could also be contributing to sinus tachycardia low grade temp could be from atelectasis. No obvious source of infection identified so far. RIP -ve. Encouraged incentive lana and ambulation. (3) Diabetes mellitus Status: Chronic Assessment and Plan: Continue home meds with sliding scale - Time Spent with Patient Total time spent is greater than 50% in coordination of care (as documented) at patient's floor/unit and/or counseling patient: Plan of Care Discussed with: patient (discussed with the primary team) Internal Medicine: Result - Labs CBC & Chem 7: 01/28/19 00:42 01/28/19 00:42 - Impressions Impressions Echocardiogram 01/28/19 01:23 Impressions: LVEF 60%. Normal LV chamber size, wall thickness and function. Normal left ventricular diastolic function. Normal right ventricular structure and function. Unable to estimate RVSP due to lack of TR jet. No significant valvular dysfunction. Left Ventricular Wall Motion: Rest Echo Findings All wall segments showed normal motion. Findings: Study Quality * Technically sub-optimal due to poor echocardiographic windows. ECG Findings * Normal sinus rhythm. Left Ventricle * LVEF 60%. * Normal LV chamber size, wall thickness and function. * Normal left ventricular diastolic function. Left Atrium * Normal left atrial size. Right Atrium * Normal right atrial size. Interatrial Septum * Interatrial septum not well evaluated. Right Ventricle * Normal right ventricular structure and function. Aortic Valve * Aortic valve not well visualized. * No aortic regurgitation. * No aortic stenosis. Mitral Valve * No mitral regurgitation. * No mitral stenosis. * Mildly thickened mitral valve leaflets. Tricuspid Valve * Trace tricuspid regurgitation. * Unable to estimate RVSP due to lack of TR jet. * No tricuspid stenosis. * Tricuspid valve not well visualized. Pulmonic Valve * Pulmonic valve is not well visualized. Aorta * Normally sized aortic root. Pericardium * The pericardium appears normal. IVC * Normal IVC dimensions and inspiratory collapse. Pulmonary Artery * Normal visualized portions of the main pulmonary artery. Consult Discharge Plan - Plan Referrals: Trinity Mckeon DO [Primary Care Provider] - Prescriptions: OxyCODONE Immed Rel [Roxicodone 5 MG] 5 mg PO Q6HR PRN 7 Days #28 tablet PRN Reason: Severe Pain Aspirin Enteric Coated [Aspirin EC] 325 mg PO BID 10 Days #20 tablet. 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
[2019-01-29] MEDS: INSULIN DEGLUDEC 10 UNIT SQ SCH (21:16)
[2019-01-30] MEDS: *HR* OxyCODONE Immed Rel 5 MG TABLET PO PRN ×4 (01:17→16:48)
[2019-01-30 04:02] LABS: Basophils % 0.3 %; Eosinophils # 0.3 K/mcL (0.0-0.6); Eosinophils % 2.1 %; Hematocrit 23.7 % (35.3-44.9); Immature Granulocytes % 0.6 % (0-4); Lymphocytes # 1.6 K/mcL (0.6-4.6); Lymphocytes % 12.6 %; Mean Corpuscular HGB Conc 32.9 g/dL (31.6-35.5); Mean Corpuscular Hemoglobin 29.8 pg (28.0-33.3); Mean Corpuscular Volume 90.5 fL (83.0-100.0); Mean Platelet Volume 10.5 fL (9.4-12.4); Monocytes # 1.3 K/mcL (0.0-1.3); Monocytes % 10.4 %; Neutrophils # 9.1 K/mcL (1.6-8.9); Platelet Count 201 K/mcL (140-400); Red Blood Count 2.62 M/mcL (3.82-4.97)
[2019-01-30 04:19] LABS: Hemoglobin 7.8 g/dL (11.5-15.4)
[2019-01-30 04:24] LABS: BUN/Creatinine Ratio 21 (6-26); Blood Urea Nitrogen 9 mg/dL (6-20); Calcium 8.2 mg/dL (8.6-10.3); Carbon Dioxide 27 mEq/L (23-29); Chloride 104 mEq/L (98-107); Glucose 153 mg/dL (70-105); Magnesium 2.1 mg/dL (1.6-2.6); Osmolality,Calculated 288 (280-300); Potassium 3.6 mEq/L (3.5-5.1); Sodium 138 mEq/L (136-145); eGFR For Non-African Americans > 60 (> 60)
[2019-01-30] MEDS: *HR* Enoxaparin 30 MG/0.3 ML SYRINGE SQ SCH ×2 (06:18→18:15)
[2019-01-30] MEDS: Acetaminophen IV 1,000 MG/100 ML INFUS..BTL IVPB PRN ×2 (06:18→19:01)
--- NOTE | 2019-01-30 08:19 | Orthopedics Progress Note ---
Addendum entered and electronically signed by HENRY Kirby 01/30/19 13:09: After speaking with Dr. Gomez will transfuse 1 unit as patient had been getting fluid resuscitation for her hypotension. 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 Daughter and granddaughter at bedside. Seen concurrently with Dr. Gomez. Intermittent fevers, vital signs more stable now - symptomatically improved - able to participate with therapy now. Bolus given 3/12. Dressings have minimal drainage. no calf tenderness to palpation. good dorsiflexion of foot, sensation intact distally. Labs reviewed. H/H with significant delta - concern for volume dilution however with patient's mild tachycardia and postoperative course concern for acute blood loss anemia exists Pain control: improved with muscle relaxer and lidoderm patch. Participating with therapy All questions and concerns addressed. Educated on use of incentive spirometer. Encouraged ambulation and proper hydration. Patient educated on post-operative restrictions and post-operative care. Assessment and plan: Continue with postoperative care - would consider discharge to inpt rehab if approved today Discharge plan: hospitalist on board CTA negative -dopplers negative. Dr. Gomez in agreement with transfusion option Patient in agreement Communicated patient's status with Dr. Mathew - recommendation for 2 units PRBCs - recheck h/h, bmp post transfusion - if approved today - would be ok for discharge following transfusion Objective Vital signs: Vital Signs Temp Pulse Resp BP BP BP Pulse Ox 01/30/19 06:59 98.3 F 94 16 119/67 96 01/30/19 03:37 98.1 F 98 17 110/66 97 01/30/19 01:12 100 01/29/19 22:58 98.1 F 102 17 116/68 98 01/29/19 20:24 100.0 F H 119 17 123/70 96 01/29/19 17:42 99.9 F H 118 16 108/57 98 01/29/19 17:06 98.0 F 61 16 122/77 92 01/29/19 12:16 98.1 F 111 15 126/63 100 01/29/19 10:58 109 01/29/19 10:56 125/62 01/29/19 10:53 124/68 Intake and Output 01/29/19 01/30/19 01/30/19 23:59 07:59 15:59 Intake Total 740 / 740 Output Total 300 / 300 Balance 440 / 440 Intake: IV Fluids 100 / 100 Ofirmev 1,000 mg/100 ml 1,000 100 / 100 mg In 100 ml @ 400 mls/hr IVPB Q6HR PRN Rx#:[id number] Oral 640 / 640 Output: Catheter 300 / 300 Other: Meal Dinner Percent of Meal Consumed 90% # Voids 1 1 Weight 77.7 kg Blood Glucose* 201 138 Patient Weight 01/30/19 23:59 Weight 77.7 kg - Labs CBC & BMP: 01/30/19 03:17 01/30/19 03:17 Labs: Abnormal lab results WBC 12.3 K/mcL (4.3-11.1) H 01/30/19 03:17 RBC 2.62 M/mcL (3.82-4.97) L 01/30/19 03:17 Hgb 7.8 g/dL (11.5-15.4) L D 01/30/19 03:17 Hct 23.7 % (35.3-44.9) L 01/30/19 03:17 Neutrophils # 9.1 K/mcL (1.6-8.9) H 01/30/19 03:17 Creatinine 0.42 mg/dL (0.60-1.20) L 01/30/19 03:17 Glucose 153 mg/dL (70-105) H 01/30/19 03:17 POC Glucose 138 mg/dL (70-99) H 01/30/19 07:02 Calcium 8.2 mg/dL (8.6-10.3) L 01/30/19 03:17 Consult Discharge Plan - Plan Referrals: Trinity Mckeon DO [Primary Care Provider] -
[2019-01-30] MEDS: Insulin LISPRO 300 UNITS/3 ML VIAL SQ SCH ×3 (08:30→16:51)
[2019-01-30] MEDS: *HR* Metformin 500 MG TABLET PO SCH (09:57)
[2019-01-30] MEDS: Multivit/Ca/Min/Fe/FA 1 TAB TABLET PO SCH (09:57)
[2019-01-30] MEDS: Cholecalciferol (D-3) 1,000 UNIT TABLET PO SCH (09:57)
[2019-01-30] MEDS: Ascorbic Acid 500 MG TABLET PO SCH ×2 (09:57→16:48)
[2019-01-30] MEDS: *HR* SitaGLIPtin 25 MG TABLET PO SCH (09:57)
--- NOTE | 2019-01-30 11:24 | Internal Med Progress Note ---
Hospitalist Progress Note - Encounter Date of Encounter: 01/30/19 Time of Encounter: 08:45 - Subjective Interval History: Pt continues to report improvement in her knee pain and is much more able to be engaged in PT. HR and temp pattern overnight noted. Again denies any focal complaints including chest pain, shortness of breath, productive cough, abdomin al pain, diarrhea, or dysuria. H&H this morning noted to show a drop in Hb from 10.4 to 7.8. - Exam Vitals: Temp Pulse Resp BP Pulse Ox 98.8 F 105 16 124/67 98 01/30/19 10:47 01/30/19 10:47 01/30/19 10:47 01/30/19 10:47 01/30/19 10:47 Exam: General: Alert and oriented, not in acute distress. Cardiovascular:Normal S1 & S2, No JVD. Pulse regular. Lungs: clear to auscultation, no wheezes/rales Abdomen:Soft, non-tender, no rigidity. Extremities: B/L knee dressing c/d/i. Both LEs supple, non-tender Skin:Normal color, no rash, no lesions. - Assessment and Plan (1) Tachycardia Current Visit: Yes Status: Resolved Assessment and Plan: sinus tachycardia likely due to volume depletion post-op +/- acute blood loss anemia. Pt had orthostatic vitals +ve which resolved with IVF and Hb noted to be low at 7.8 CTA did not show any PE or PNA. No other infectious symptoms reported. Surgical sites appear unremarkable. ACS ruled out. LE doppler -ve for DVT as well transfuse pRBC per primary team (2) Status post total bilateral knee replacement Current Visit: Yes Status: Acute Assessment and Plan: mx per primary optimize pain control which could also be contributing to sinus tachycardia low grade temp could be from atelectasis. No obvious source of infection identified so far. RIP -ve. Encouraged incentive lana and ambulation. (3) Diabetes mellitus Current Visit: No Status: Chronic Assessment and Plan: Continue home meds with sliding scale (4) Postoperative anemia due to acute blood loss Current Visit: Yes Status: Acute Assessment and Plan: mx per primary - Summary of Assessment and Plan Summary of Assessment and Plan: will sign off, please call back for more questions - Time Spent with Patient Total time spent is greater than 50% in coordination of care (as documented) at patient's floor/unit and/or counseling patient: 25 - 35 minutes Plan of Care Discussed with: patient (discussed with the primary team as well) Internal Medicine: Result - Labs CBC & Chem 7: 01/30/19 03:17 01/30/19 03:17 Labs: Short CBC 01/30/19 Range/Units 03:17 WBC 12.3 H (4.3-11.1) K/mcL Hgb 7.8 L D (11.5-15.4) g/dL Hct 23.7 L (35.3-44.9) % Plt Count 201 (140-400) K/mcL Neutrophils # 9.1 H (1.6-8.9) K/mcL BMP 01/30/19 03:17 Sodium 138 Potassium 3.6 Chloride 104 Carbon Dioxide 27 BUN 9 Creatinine 0.42 L Glucose 153 H Calcium 8.2 L Consult Discharge Plan - Plan Referrals: Trinity Mckeon DO [Primary Care Provider] - (3) Diabetes mellitus Qualifiers: Diabetes mellitus type: type 2 Diabetes mellitus scale installer insulin use: without intermediate use Diabetes mellitus complication status: with unspecified complications Qualified Code(s): E11.8 - Type 2 diabetes mellitus with unspecified complications
[2019-01-30] MEDS ORDERED: 0.9 % Sodium Chloride 250 ML ONE (13:25)
[2019-01-30] MEDS ORDERED: *HR* Metoprolol 5 MG/5 ML VIAL IVP PRN (17:47)
[2019-01-30 18:27] LABS: Hemoglobin 9.9 g/dL (11.5-15.4)
[2019-01-30 18:38] LABS: BUN/Creatinine Ratio 20 (6-26); Blood Urea Nitrogen 11 mg/dL (6-20); Calcium 8.9 mg/dL (8.6-10.3); Carbon Dioxide 28 mEq/L (23-29); Chloride 99 mEq/L (98-107); Glucose 171 mg/dL (70-105); Osmolality,Calculated 285 (280-300); Potassium 3.7 mEq/L (3.5-5.1); Sodium 136 mEq/L (136-145); eGFR For Non-African Americans > 60 (> 60)
[2019-01-30] MEDS: INSULIN DEGLUDEC 10 UNIT SQ SCH (21:09)
[2019-01-31] MEDS: *HR* OxyCODONE Immed Rel 5 MG TABLET PO PRN ×3 (01:26→12:36)
--- NOTE | 2019-01-31 03:35 | Electrocardiograph Report ---
[place] [id number] Test Date: 2019-01-30 Pat Name: Monica Caballero Department: 114 Room: [facility] Gender: F Ripening Room Hand: [facility] : 1960 Requested By: Kimberlyn Chowdhury Order Number: [id number] Reading MD: Donte Sanabria Measurements Intervals English Rate: 107 P: 59 IA: 142 QRS: 36 QRSD: 84 T: -1 QT: 316 QTc: 379 Interpretive Statements SINUS TACHYCARDIA NONSPECIFIC T-WAVE ABNORMALITY Electronically Signed On 01-31-2019 3:33:17 EDT by Donte Sanabria
[2019-01-31] MEDS: Gabapentin 300 MG CAPSULE PO PRN (03:46)
[2019-01-31] MEDS: *HR* Enoxaparin 30 MG/0.3 ML SYRINGE SQ SCH (06:23)
--- NOTE | 2019-01-31 08:18 | Physician Discharge Referral ---
ExtendedCare Referral Info Transfer To: [facility] Provider in Charge: Dr. Derian Mathew - Diagnosis (1) Osteoarthritis of knees, bilateral Priority: Primary Status: Chronic (2) Status post total bilateral knee replacement Priority: Primary Status: Acute (3) Diabetes mellitus Priority: Secondary Status: Chronic (4) HLD (hyperlipidemia) Priority: Secondary Status: Chronic (5) Acute blood loss anemia Priority: Secondary Status: Acute (6) Tachycardia Priority: Secondary Status: Acute Expected Duration of Placement: less than 30 days Prognosis: Good Aware of Diagnosis: Patient, Family Aware of Prognosis: Patient, Family - Transfer Medications Prescriptions: Metoprolol [Lopressor] 12.5 mg PO BID 7 Days #14 tablet Home Medications: Cholecalciferol (D-3) [Vitamin D] 1,000 unit PO DAILY 04/18/16 [History] Lisinopril 2.5 mg PO DAILY 04/18/16 [History] Sitagliptin Phos/Metformin HCl [Janumet 50-500 mg Tablet] 1 each PO DAILY 0 04/18/16 [History] Atorvastatin [Lipitor] 10 mg PO HS 07/05/17 [History] Insulin Degludec [Tresiba Flextouch U-200] 10 unit SQ HS 07/05/17 [History] Aspirin Enteric Coated [Aspirin EC] 325 mg PO BID 10 Days #20 tablet. 01/25/19 [Rx] OxyCODONE Immed Rel [Roxicodone 5 MG] 5 mg PO Q6HR PRN 7 Days #28 tablet 01/25/19 [Rx] Ascorbic Acid [Vitamin C] 500 mg PO BIDWM tablet 01/31/19 [Rx] Cyclobenzaprine [Flexeril] 5 mg PO TID PRN tablet 01/31/19 [Rx] Docusate [Colace] 100 mg PO BID capsule 01/31/19 [Rx] Ferrous Sulfate 325 mg PO BIDWM tablet 01/31/19 [Rx] Lidocaine Patch [Lidoderm 5% patch] 2 each TP DAILY adh..patch 01/31/19 [Rx] Metoprolol [Lopressor] 12.5 mg PO BID 7 Days #14 tablet 01/31/19 [Rx] Allergies/Adverse Reactions: Allergy/AdvReac Type Severity Reaction Status Date / Time latex Allergy See Verified 01/15/19 09:23 Comments naproxen AdvReac Anaphylaxis Verified 01/26/19 11:19 HIVES - Respiratory Orders Smoking Cessation: Smoking cessation has been advised. For more information, call the [place] Tobacco Quit Line at 7-663-RTUR-NOW. - Ancillary Orders May use pressure relief devices daily prn, May go on EDUARDO w/family/respon republican w/meds at nurse discretion PRN, May consult with Dentist, Design Painter, Digging Machine Operator PRN - Mobility Orders Chair, Ambulate - Rehabiliation Orders Rehab Potential: Good Rehab Orders: Evaluation for Physical Therapy, Evaluation for Occupational Therapy Other: Total Knee replacement Precautions x 6 weeks Apply cold therapy wrap 3-6x/day for 20 minutes at a time. Encourage ambulation throughout the day and incentive spirometer 10x/hour. Elevate affected extremity above heart as tolerated. Brace: Wear knee immobilizer at night x 2 weeks. - Treatments Skin tear care topically daily PRN per policy List/Other: Opsite placed. Keep dressing intact until first follow up appointment. If greater than 50% saturated, notify office, remove dressing and place appropriate dressing back in place. Leave Zipline intact. Opsite dressing is water resistant, not water-proof. OK to shower, but do not get dressing wet. - Diet Orders Regular (Diabetic) CERTIFICATION: I certify that the transfer of the above named patient to an Extended Care Facility is necessary for the continuing treatment of the diagnosis listed. The above information is true and accurate reflection of patient's current condition. Confidential - Redisclosure prohibited without a patient's written consent.
[2019-01-31] MEDS: Insulin LISPRO 300 UNITS/3 ML VIAL SQ SCH ×2 (08:33→12:20)
[2019-01-31 08:34] LABS: Hematocrit 28.4 % (35.3-44.9); Hemoglobin 9.6 g/dL (11.5-15.4); Mean Corpuscular HGB Conc 33.8 g/dL (31.6-35.5); Mean Corpuscular Hemoglobin 30.1 pg (28.0-33.3); Mean Platelet Volume 9.9 fL (9.4-12.4); Platelet Count 245 K/mcL (140-400); Red Blood Count 3.19 M/mcL (3.82-4.97); Red Cell Distribution Width 13.1 % (11.5-14.5)
[2019-01-31] MEDS: *HR* SitaGLIPtin 25 MG TABLET PO SCH (08:34)
[2019-01-31] MEDS: Multivit/Ca/Min/Fe/FA 1 TAB TABLET PO SCH (08:34)
[2019-01-31] MEDS: Ascorbic Acid 500 MG TABLET PO SCH (08:34)
[2019-01-31] MEDS: *HR* Metformin 500 MG TABLET PO SCH (08:34)
[2019-01-31] MEDS: Cholecalciferol (D-3) 1,000 UNIT TABLET PO SCH (08:34)
[2019-01-31 08:54] LABS: BUN/Creatinine Ratio 23 (6-26); Blood Urea Nitrogen 9 mg/dL (6-20); Calcium 8.8 mg/dL (8.6-10.3); Carbon Dioxide 26 mEq/L (23-29); Chloride 100 mEq/L (98-107); Glucose 155 mg/dL (70-105); Osmolality,Calculated 284 (280-300); Potassium 3.7 mEq/L (3.5-5.1); Sodium 136 mEq/L (136-145); eGFR For Non-African Americans > 60 (> 60)
[2019-01-31] MEDS ORDERED: *HR* LORazepam 2 MG/ML VIAL IVP ONE (10:20)
--- NOTE | 2019-01-31 10:25 | Internal Med Progress Note ---
Hospitalist Progress Note - Encounter Date of Encounter: 01/31/19 Time of Encounter: 08:15 - Subjective Interval History: NO new complaints, feels that her knee pain is better controlled this morning. She however does feel a bit anxious about her progress although denies chest pain, palpitation, orthopnea, or PND. OFfered her an option of trial of lopre ssor for tachycardia which she declined in fear of lowering BP further. Was willing to try 1 dose of ativan. - Exam Vitals: Temp Pulse Resp BP Pulse Ox 98.2 F 117 16 115/72 98 01/31/19 07:39 01/31/19 07:39 01/31/19 07:39 01/31/19 07:39 01/31/19 07:39 Exam: General: Alert and oriented, not in acute distress. Cardiovascular:Normal S1 & S2, No JVD. Pulse regular, tachycardic around 108 Lungs: clear to auscultation, no wheezes/rales Abdomen:Soft, non-tender, no rigidity. Extremities: B/L knee dressing c/d/i. Both LEs supple, non-tender Skin:Normal color, no rash, no lesions. - Assessment and Plan (1) Tachycardia Current Visit: Yes Status: Acute Assessment and Plan: sinus tachycardia likely due to volume depletion +/- acute blood loss anemia and post-op pain. Pt had orthostatic vitals +ve which resolved with IVF and Hb noted to be low at 7.8 CTA did not show any PE or PNA. No other infectious symptoms reported. Surgical sites appear unremarkable. ACS ruled out. LE doppler -ve for DVT as well transfused 1U pRBC yesterday with Hb 7.8 - 9.9, today at 9.6 offered Metoprolol as a temporary option which she declined, consider 12.5mg daily if willing to try at rehab she is however willing to try ativan as she feels a bit anxious about her progress, would try 0.5mg IV one time. If she responds, consider a PRN dosing at rehab will sign off. (2) Status post total bilateral knee replacement Current Visit: Yes Status: Acute Assessment and Plan: mx per primary optimize pain control which could also be contributing to sinus tachycardia low grade temp could be from atelectasis. No further epidsodes overnight. No obvious source of infection identified so far. RIP -ve. Encouraged incentive sp iro and ambulation. (3) Diabetes mellitus Current Visit: No Status: Chronic Assessment and Plan: Continue home meds with sliding scale (4) Postoperative anemia due to acute blood loss Current Visit: Yes Status: Acute Assessment and Plan: mx per primary - Time Spent with Patient Total time spent is greater than 50% in coordination of care (as documented) at patient's floor/unit and/or counseling patient: 25 - 35 minutes Plan of Care Discussed with: patient (discussed with RN and primary team) Internal Medicine: Result - Labs CBC & Chem 7: 01/31/19 08:03 01/31/19 08:03 Labs: Short CBC 01/30/19 01/31/19 Range/Units 17:54 08:03 WBC 11.3 H (4.3-11.1) K/mcL Hgb 9.9 L D 9.6 L (11.5-15.4) g/dL Hct 30.0 L 28.4 L (35.3-44.9) % Plt Count 245 (140-400) K/mcL BMP 01/30/19 01/31/19 17:54 08:03 Sodium 136 136 Potassium 3.7 3.7 Chloride 99 100 Carbon Dioxide 28 26 BUN 11 9 Creatinine 0.54 L 0.40 L Glucose 171 H 155 H Calcium 8.9 8.8 - VTE Documentation of Mechanical Device: Venous foot pump, device Consult Discharge Plan - Plan Referrals: Trinity Mckeon DO [Primary Care Provider] - Prescriptions: Metoprolol [Lopressor] 12.5 mg PO BID 7 Days #14 tablet (3) Diabetes mellitus Qualifiers: Diabetes mellitus type: type 2 Diabetes mellitus turn laster insulin use: without halfway use Diabetes mellitus complication status: with unspecified complications Qualified Code(s): E11.8 - Type 2 diabetes mellitus with unspecified complications
--- NOTE | 2019-01-31 11:35 | Orthopedics Progress Note ---
Date of Encounter: 01/31/19 Time of Encounter: 11:32 Subjective Principal diagnosis: s/p b/l TKR Interval history: S: Patient is seen today and has no complaints. O: Afebrile and vital signs are stable Extremity dressings clean, dry, and intact. Neurovascularly intact distally A: Post bilateral total knees P: Resume postoperative care Stable for discharge today Objective Vital signs: Vital Signs Temp Pulse Resp BP Pulse Ox 01/31/19 07:39 98.2 F 117 16 115/72 98 01/31/19 03:32 98.9 F 103 15 115/65 96 01/30/19 23:12 98.3 F 96 15 104/48 98 01/30/19 21:06 99 01/30/19 18:41 99.5 F 119 16 109/58 99 01/30/19 16:53 98.6 F 120 18 107/64 100 01/30/19 15:07 99.5 F 115 18 116/67 97 01/30/19 13:52 99.9 F H 112 16 102/57 100 01/30/19 13:20 98.4 F 108 16 115/70 96 Intake and Output 01/30/19 01/31/19 01/31/19 23:59 07:59 15:59 Intake Total 300 / 300 500 / 500 120 / 120 Balance 300 / 300 500 / 500 120 / 120 Intake: Oral 500 / 500 120 / 120 Blood Product 300 / 300 Rbcs Leuko Poor As-1 Unit 300 / 300 [id number] Other: Meal Breakfast Percent of Meal Consumed 100% # Voids 1 1 # Bowel Movements 1 Weight 77.6 kg Blood Glucose* 183 160 Patient Weight 01/31/19 23:59 Weight 77.6 kg - Labs CBC & BMP: 01/31/19 08:03 01/31/19 08:03 Labs: Abnormal lab results WBC 11.3 K/mcL (4.3-11.1) H 01/31/19 08:03 RBC 3.19 M/mcL (3.82-4.97) L 01/31/19 08:03 Hgb 9.6 g/dL (11.5-15.4) L 01/31/19 08:03 Hct 28.4 % (35.3-44.9) L 01/31/19 08:03 Neutrophils # 9.1 K/mcL (1.6-8.9) H 01/30/19 03:17 Creatinine 0.40 mg/dL (0.60-1.20) L 01/31/19 08:03 Glucose 155 mg/dL (70-105) H 01/31/19 08:03 POC Glucose 183 mg/dL (70-99) H 01/30/19 20:02 - VTE Documentation of Mechanical Device: Venous foot pump, device Consult Discharge Plan - Plan Additional Instructions: Discharge Instructions: Total Knee Replacement Please call [facility] ([phone]), your Primary Care Physician, or report to the Emergency Room if you have any of the following symptoms: Nausea, vomiting, fever greater that 101.5, swelling, chest pain, shortness of breath, increased pain/redness/drainage/odor for your incision site, numbness/tingling, or any other concerning symptoms. ACTIVITY:Weight-bearing as tolerated. You may progress off support (crutches or walker) as tolerated. Incentive Spirometer 10 times an hour. MEDICATIONS: Upon discharge resume your home medications. Take all the medications as prescribed. Take a stool softener if taking narcotic pain medications. Stool softeners are only effective if you drink enough fluids. Drink 6-8 glass of water or fluids a day, unless this is not allowed for another health problem. Despite using stool softeners, if you haven't had a bowel movement in 3 days, please switch to a gentle laxative. Gentle laxatives are sold over the counter. You should have a bowel movement within 24 hours, if not call the office. You will be discharged from the hospital with a prescription for pain medication. You are encouraged to decrease the use of narcotic pain medication as tolerated. Should you require a refill, please call the office. [facility] prescribes narcotic pain medication for only 4-6 weeks after surgery. If you require pain medication beyond this time period, you may be referred to your Primary Care Physician or to the Pain Clinic for further evaluation. Plan ahead for refills on pain medication as many narcotics either need to be picked up at the office or mailed. It is best to call 48-72 hours in advance of needing a prescription refill so you don't run out of medication. To help control the post-operative pain, you may take NSAIDs (Aleve,Advil, Motrin, Ibuprofen, Naprosyn) or Tylenol as prescribed on the bottle in addition to the pain medication. ANTICOAGULATION (blood thinners): Continue your Aspirin, Lovenox or Coumadin as prescribed to help prevent a blood clot in the leg or in the lungs. As long as your incision remains dry and you tolerate the NSAIDs (Aleve, Advil, Motrin, ibuprofen, naprosyn), it is OK to use the NSAIDS while you are taking your anticoagulation medication. Should your incision start to drain, stop the NSAID and contact our office. Common symptoms of blood clot in the legs include: localized pain, swelling, calf tenderness, redness or discoloration of the skin. Blood clot in the lung symptoms include: shortness of breath, rapid pulse, sweating, and chest pain that worsens with deep breathing, coughing up blood, lightheadedness, feelings of anxiety. If you experience any of these symptoms notify your physician immediately, go to the emergency room, or if having trouble breathing, call 911. WOUND CARE: Leave the dressing on for 7 to 10days. You may change the dressing i f it becomes saturated greater than 50%. Do not get the dressing wet at anytime. Wash your hands with antibacterial soap, rinse and dry prior to any wound care. If you have rob the visiting nurse or rehab facility can remove the stapes 10-14 days after surgery and place steri-strips across the wound. Leave the steri-strips in place until they fall off on their won. You may let water from the shower run on top of the steri-strips. If you do not have a visiting nurse or rehab facility, you will need to return to the office at 10-14 days for the rob to be removed. If you have itching or redness around the dressing call the office. FOLLOW-UP: Please follow up with your surgeon in the orthopedic clinic in 4 weeks from the day of surgery. If you have rob that need to be removed, you will need to come back to the office in 10-14 days from the day of surgery. Referrals: Trinity Mckeon DO [Primary Care Provider] - Prescriptions: Metoprolol [Lopressor] 12.5 mg PO BID 7 Days #14 tablet
[2019-01-31 11:58] VITALS: BP 113/59
== END 2019-01-31 13:12 | DRG 462 ==
LOC: SAMDAY 10:37 → 3NENU 16:25
PROVIDERS: ADMIT Orthopaedic Surgery; ATTEND Orthopaedic Surgery

== ENCOUNTER 2020-11-25 10:22 | Inpatient (IN) ==
[2020-11-25] MEDS ORDERED: CeFAZolin Syr 2,000MG/20 ML 2,000 MG/20 ML SYRINGE IVPB ONE (10:40)
[2020-11-25] MEDS ORDERED: Ringers Solution, Lactated 1,000 ML IVC SCH ×2 (10:45→16:25)
[2020-11-25] MEDS ORDERED: Ethanol\\Acetic Acid\\Na Ace\\Ben 1,000 ML IRRIG.SOLN IR ONE ×2 (11:00→11:55)
[2020-11-25] MEDS ORDERED: Vancomycin 1,000 MG VIAL ONE (11:00)
[2020-11-25] MEDS ORDERED: *HR* OxyCODONE ER (12 HR) 10 MG TABLET PO ONE (11:25)
[2020-11-25] MEDS ORDERED: Gabapentin 300 MG CAPSULE PO ONE (11:25)
[2020-11-25] MEDS ORDERED: Celecoxib 200 MG CAPSULE PO ONE (11:25)
[2020-11-25] MEDS ORDERED: *HR* HYDROmorphone PF 0.5 MG/0.5 ML SYRINGE IVP PRN (11:26)
[2020-11-25] MEDS ORDERED: *HR* OxyCODONE Immed Rel 5 MG TABLET PO PRN (11:26)
[2020-11-25] MEDS ORDERED: Ondansetron 4 MG/2 ML VIAL IVP PRN ×2 (11:26→16:25)
[2020-11-25] MEDS ORDERED: Ondansetron 4 MG/2 ML VIAL ONE (11:37)
[2020-11-25] MEDS ORDERED: *HR* Propofol 200 MG/20 ML VIAL IVP ONE (11:37)
[2020-11-25] MEDS ORDERED: Lidocaine -MPF 2% 2 ML VIAL ONE (11:37)
[2020-11-25] MEDS ORDERED: Tranexamic Acid 1,000 MG/10 ML VIAL ONE (11:39)
[2020-11-25] MEDS ORDERED: *HR* Midazolam HCl 2 MG/2 ML VIAL ONE (11:51)
[2020-11-25] MEDS ORDERED: *HR* FentaNYL (PF) 100 MCG/2 ML VIAL ONE (11:52)
[2020-11-25] MEDS ORDERED: ROPIVACAINE/PF/NS 0.25% 1 EACH SYRINGE INTRAART ONE (11:52)
[2020-11-25] MEDS ORDERED: *HR* Magnesium Sulfate 1 GM/2 ML VIAL ONE (12:28)
[2020-11-25] MEDS ORDERED: TOTAL JOINT MIXTURE (100ML) INTRAART ONE (13:30)
[2020-11-25] MEDS ORDERED: Povidone-Iodine 45 ML, Sodium Chloride IRRigation 1,000 ML IR ONE (13:30)
[2020-11-25] MEDS ORDERED: *HR* PHENYLEPHRINE 1,000 MCG/10 ML SYRINGE IVP ONE ×2 (13:43→14:16)
[2020-11-25 15:40] LABS: Hematocrit 36.7 % (35.3-44.9); Hemoglobin 11.9 g/dL (11.5-15.4)
[2020-11-25] MEDS ORDERED: Naloxone 0.4 MG/ML INJ IVP PRN (16:25)
[2020-11-25] MEDS ORDERED: *HR* Promethazine 25 MG/ML VIAL IM PRN (16:25)
[2020-11-25] MEDS ORDERED: HYDROcodone BIT/Homatropine 5 MG TABLET PO PRN (16:25)
[2020-11-25] MEDS ORDERED: Sennosides 8.6 MG TABLET PO PRN (16:25)
[2020-11-25] MEDS ORDERED: Dextrose Gel 15 GM/37.5 ML TUBE PO PRN ×2 (16:25)
[2020-11-25] MEDS ORDERED: D5% in Water 1,000 ML IVC PRN (16:25)
[2020-11-25] MEDS ORDERED: MOM Conc 10 ML UD.LIQ PO PRN (16:25)
[2020-11-25] MEDS ORDERED: *HR* Dextrose 50 % in Water (Vial) 50 ML VIAL IVP PRN (16:25)
[2020-11-25] MEDS: Insulin LISPRO 300 UNITS/3 ML VIAL SUBQ SCH (18:55)
[2020-11-25] MEDS: *HR* OxyCODONE Immed Rel 5 MG TABLET PO PRN (19:15)
[2020-11-25] MEDS: Ascorbic Acid 500 MG TABLET PO SCH (19:16)
[2020-11-25] MEDS ORDERED: Insulin LISPRO 300 UNITS/3 ML VIAL SUBQ SCH (21:00)
[2020-11-25] MEDS: CeFAZolin 2 GM/120 ML BAG IVPB SCH (21:22)
[2020-11-26] MEDS: *HR* OxyCODONE Immed Rel 5 MG TABLET PO PRN ×3 (03:07→15:11)
[2020-11-26 03:59] LABS: Basophils % 0.2 %; Hemoglobin 11.7 g/dL (11.5-15.4); Immature Granulocytes % 0.7 % (0-4); Lymphocytes # 1.1 K/mcL (0.6-4.6); Lymphocytes % 6.6 %; Mean Corpuscular HGB Conc 31.6 g/dL (31.6-35.5); Mean Corpuscular Hemoglobin 27.8 pg (28.0-33.3); Mean Corpuscular Volume 87.9 fL (83.0-100.0); Mean Platelet Volume 10.8 fL (9.4-12.4); Platelet Count 257 K/mcL (140-400); Red Blood Count 4.21 M/mcL (3.82-4.97); Red Cell Distribution Width 14.6 % (11.5-14.5); Segmented Neutrophils % 86.5 %
[2020-11-26 04:00] LABS: Neutrophils # 14.3 K/mcL (1.6-8.9); White Blood Count 16.5 K/mcL (4.3-11.1)
[2020-11-26 04:17] LABS: BUN/Creatinine Ratio 30 (6-26); Blood Urea Nitrogen 20 mg/dL (8-23); Calcium 9.2 mg/dL (8.6-10.3); Carbon Dioxide 25 mEq/L (23-29); Chloride 103 mEq/L (98-107); Glucose 243 mg/dL (70-105); Osmolality,Calculated 293 (280-300); Potassium 4.5 mEq/L (3.5-5.1); Sodium 136 mEq/L (136-145); eGFR For African Americans > 60 (> 60); eGFR For Non-African Americans > 60 (> 60)
[2020-11-26] MEDS: CeFAZolin 2 GM/120 ML BAG IVPB SCH (06:01)
[2020-11-26] MEDS: Insulin LISPRO 300 UNITS/3 ML VIAL SUBQ SCH ×2 (08:55→12:48)
[2020-11-26] MEDS: Ascorbic Acid 500 MG TABLET PO SCH (08:56)
[2020-11-26] MEDS ORDERED: Multivit/Ca/Min/Fe/FA 1 TAB TABLET PO SCH (09:00)
[2020-11-26] MEDS ORDERED: Aspirin Enteric Coated 81 MG Tablet PO SCH ×2 (09:00)
[2020-11-26 11:31] VITALS: BP 128/72
== END 2020-11-26 15:30 | disposition home or self-care (01) | DRG 468 ==
LOC: 3NENU 10:22 → SAMDAY 10:22 → 3NENU 10:51 → SAMDAY 11-26 15:30 → 3NENU 11-30 13:24
PROVIDERS: ADMIT Orthopaedic Surgery; ATTEND Orthopaedic Surgery